=== PATIENT | female | born 1960 | race Caucasian/White ===

== ENCOUNTER 2021-03-23 11:58 | Inpatient (IN) | payer OTHER ==
[2021-03-23] MEDS ORDERED: SODIUM CHLORIDE 0.9% 500 ML INFUS.BAG IV ONE (12:45)
[2021-03-23 13:57] LABS: CHLORIDE 105 mmol/L (98-107); SODIUM 140 mmol/L (136-145)
[2021-03-23 13:59] LABS: BLOOD UREA NITROGEN 17.8 mg/dL (7-18)
[2021-03-23 14:00] LABS: ALBUMIN 3.4 g/dl (3.4-5.0); ANION GAP 9 MMOL/L (8-16); CO2 26 mmol/L (21-32); GLUCOSE,RANDOM 114 mg/dL (74-106); MAGNESIUM 2.4 mg/dL (1.8-2.4)
[2021-03-23 14:03] LABS: CREATININE 0.5 mg/dL (0.55-1.3); SGOT/AST 37 U/L (15-37); SGPT/ALT 34 U/L (13-61)
[2021-03-23 14:04] LABS: BILIRUBIN,TOTAL 0.4 mg/dL (0.2-1); TOT PROT 7.1 g/dl (6.4-8.2)
[2021-03-23 14:06] LABS: ALK PHOS 52 U/L (45-117)
[2021-03-23 14:19] LABS: BASO % 0.4 % (0-2.0); HEMATOCRIT 36.8 % (32.4-45.2); LYMPH % 10.1 % (8-40); MCH 31.2 pg (25.7-33.7); MCHC 35.2 g/dl (32.0-36.0); MEAN CELL VOLUME 88.6 fl (80-96); MEAN PLT VOLUME 8.5 fl (7.5-11.1); NEUT % 81.5 % (42.8-82.8); PLATELET COUNT 205 10^3/uL (134-434); RBC 4.15 M/mm3 (3.60-5.2); RDW 13.6 % (11.6-15.6); WHITE BLOOD COUNT 4.5 K/mm3 (4.0-10.0)
[2021-03-23 17:13] LABS: EPI CELLS 26 /uL (0-25.1); HYALINE CASTS 4 /uL (0-3.1); PH,URINE 5.5 (5.0-8.0); URINE APPEARANCE CLEAR; URINE BACTERIA 64 /uL (0-1359); URINE BILIRUBIN NEGATIVE (NEGATIVE); URINE COLOR YELLOW; URINE GLUCOSE (UA) NEGATIVE (NEGATIVE); URINE KETONE NEGATIVE (NEGATIVE); URINE LEUK ESTERASE NEGATIVE (NEGATIVE); URINE NITRITE NEGATIVE (NEGATIVE); URINE PROTEIN 2+ (NEGATIVE); URINE RBC 12 /uL (0-23.9); URINE UROBILINOGEN 0.2 mg/dL (0.2-1.0); URINE WBC 17 /uL (0-25.8)
[2021-03-24] MEDS: ACETAMINOPHEN 325 MG TABLET (FP) PO PRN (06:29)
[2021-03-24 07:41] LABS: BASO % 0.3 % (0-2.0); HEMOGLOBIN 13.3 GM/dL (10.7-15.3); LYMPH % 9.5 % (8-40); MCH 31.7 pg (25.7-33.7); MCHC 35.9 g/dl (32.0-36.0); MEAN CELL VOLUME 88.1 fl (80-96); MEAN PLT VOLUME 8.5 fl (7.5-11.1); MONO % 7.1 % (3.8-10.2); NEUT % 83.1 % (42.8-82.8); PLATELET COUNT 225 10^3/uL (134-434); RBC 4.19 M/mm3 (3.60-5.2); RDW 13.8 % (11.6-15.6); WHITE BLOOD COUNT 5.1 K/mm3 (4.0-10.0)
[2021-03-24 07:54] LABS: BLOOD UREA NITROGEN 15.5 mg/dL (7-18); CALCIUM 7.6 mg/dL (8.5-10.1); MAGNESIUM 2.2 mg/dL (1.8-2.4)
[2021-03-24 07:58] LABS: CREATININE 0.5 mg/dL (0.55-1.3); PHOSPHOROUS 3.1 mg/dL (2.5-4.9)
[2021-03-24 07:59] LABS: BILIRUBIN,TOTAL 0.5 mg/dL (0.2-1); TOT PROT 6.3 g/dl (6.4-8.2)
[2021-03-24] MEDS ORDERED: PT OWN MED DRAWER 7, Y5N ONE ×2 (09:07→17:49)
[2021-03-24] MEDS: ENOXAPARIN NA (PORCINE) 40 MG/0.4 ML DISP.SYRIN SQ SCH (09:41)
[2021-03-24] MEDS: FOLIC ACID 1 MG TABLET (FP) PO SCH (09:42)
[2021-03-24] MEDS: PANTOPRAZOLE 40 MG TABLET PO SCH (09:42)
[2021-03-24] MEDS ORDERED: METHOTREXATE 2.5 MG TABLET PO SCH (10:00)
[2021-03-24] MEDS ORDERED: DEXAMETHASONE 4 MG TABLET (FP) PO SCH (10:00)
[2021-03-24] MEDS ORDERED: REMDESIVIR 200 MG in SODIUM CHLORIDE 250 ML IVPB ONE (11:42)
[2021-03-24] MEDS: ASCORBIC ACID 500 MG TABLET (FP) PO SCH ×2 (13:03→20:59)
[2021-03-24] MEDS: CHOLECALCIFEROL (VIT D3) 1,000 UNIT (25 MCG) TABLET PO SCH (13:03)
[2021-03-24] MEDS: ZINC SULFATE 220 MG CAPSULE (FP) PO SCH (13:03)
[2021-03-24] MEDS: HYDROXYCHLOROQUINE SO4 200 MG TABLET (FP) PO SCH (13:04)
[2021-03-25 07:58] LABS: BASO % 0.2 % (0-2.0); HEMATOCRIT 37.4 % (32.4-45.2); HEMOGLOBIN 13.2 GM/dL (10.7-15.3); LYMPH % 7.9 % (8-40); MCH 31.5 pg (25.7-33.7); MCHC 35.3 g/dl (32.0-36.0); MEAN CELL VOLUME 89.3 fl (80-96); MEAN PLT VOLUME 8.8 fl (7.5-11.1); MONO % 7.1 % (3.8-10.2); NEUT % 84.8 % (42.8-82.8); PLATELET COUNT 280 10^3/uL (134-434); RBC 4.19 M/mm3 (3.60-5.2); RDW 13.4 % (11.6-15.6); WHITE BLOOD COUNT 7.2 K/mm3 (4.0-10.0)
[2021-03-25 08:00] LABS: BLOOD UREA NITROGEN 20.3 mg/dL (7-18); CALCIUM 7.9 mg/dL (8.5-10.1)
[2021-03-25 08:01] LABS: MAGNESIUM 2.2 mg/dL (1.8-2.4)
[2021-03-25 08:04] LABS: CREATININE 0.5 mg/dL (0.55-1.3); PHOSPHOROUS 2.9 mg/dL (2.5-4.9)
[2021-03-25 08:05] LABS: BILIRUBIN,TOTAL 0.4 mg/dL (0.2-1); TOT PROT 6.4 g/dl (6.4-8.2)
[2021-03-25] MEDS ORDERED: PT OWN MED DRAWER 7, Y5N ONE (09:56)
[2021-03-25] MEDS: CHOLECALCIFEROL (VIT D3) 1,000 UNIT (25 MCG) TABLET PO SCH (09:57)
[2021-03-25] MEDS: PANTOPRAZOLE 40 MG TABLET PO SCH (09:57)
[2021-03-25] MEDS: ASCORBIC ACID 500 MG TABLET (FP) PO SCH ×2 (09:57→22:22)
[2021-03-25] MEDS: DEXAMETHASONE SOD PHOSPHATE 4 MG/1 ML VIAL IVPUSH SCH (09:57)
[2021-03-25] MEDS: ZINC SULFATE 220 MG CAPSULE (FP) PO SCH (09:58)
[2021-03-25] MEDS: FOLIC ACID 1 MG TABLET (FP) PO SCH (09:58)
[2021-03-25] MEDS: HYDROXYCHLOROQUINE SO4 200 MG TABLET (FP) PO SCH (09:58)
[2021-03-25] MEDS: ENOXAPARIN NA (PORCINE) 40 MG/0.4 ML DISP.SYRIN SQ SCH (09:58)
[2021-03-25] MEDS ORDERED: TOCILIZUMAB IVPB ONE ×2 (12:14→12:45)
[2021-03-25] MEDS ORDERED: SODIUM CHLORIDE IVPB ONE ×2 (12:14→12:45)
[2021-03-25] MEDS: REMDESIVIR 100 MG in SODIUM CHLORIDE 250 ML IVPB SCH (12:51)
[2021-03-26 07:37] LABS: CALCIUM 7.9 mg/dL (8.5-10.1)
[2021-03-26 07:38] LABS: MAGNESIUM 2.3 mg/dL (1.8-2.4)
[2021-03-26 07:41] LABS: CREATININE 0.4 mg/dL (0.55-1.3); PHOSPHOROUS 3.2 mg/dL (2.5-4.9)
[2021-03-26 07:42] LABS: BILIRUBIN,TOTAL 0.4 mg/dL (0.2-1); TOT PROT 6.5 g/dl (6.4-8.2)
[2021-03-26 08:19] LABS: BASO % 1.8 % (0-2.0); HEMATOCRIT 40.1 % (32.4-45.2); LYMPH % 17.4 % (8-40); MCH 31.3 pg (25.7-33.7); MCHC 34.8 g/dl (32.0-36.0); MEAN CELL VOLUME 89.7 fl (80-96); MEAN PLT VOLUME 8.7 fl (7.5-11.1); MONO % 9.4 % (3.8-10.2); NEUT % 71.4 % (42.8-82.8); PLATELET COUNT 269 10^3/uL (134-434); RBC 4.47 M/mm3 (3.60-5.2); RDW 13.8 % (11.6-15.6); WHITE BLOOD COUNT 3.3 K/mm3 (4.0-10.0)
[2021-03-26] MEDS ORDERED: PT OWN MED DRAWER 7, Y5N ONE (09:17)
[2021-03-26] MEDS: CHOLECALCIFEROL (VIT D3) 1,000 UNIT (25 MCG) TABLET PO SCH (10:00)
[2021-03-26] MEDS: ZINC SULFATE 220 MG CAPSULE (FP) PO SCH (10:00)
[2021-03-26] MEDS: ASCORBIC ACID 500 MG TABLET (FP) PO SCH ×2 (10:00→23:03)
[2021-03-26] MEDS: ENOXAPARIN NA (PORCINE) 40 MG/0.4 ML DISP.SYRIN SQ SCH (10:00)
[2021-03-26] MEDS: FOLIC ACID 1 MG TABLET (FP) PO SCH (10:00)
[2021-03-26] MEDS: PANTOPRAZOLE 40 MG TABLET PO SCH (10:00)
[2021-03-26] MEDS: HYDROXYCHLOROQUINE SO4 200 MG TABLET (FP) PO SCH (10:01)
[2021-03-26] MEDS: DEXAMETHASONE SOD PHOSPHATE 4 MG/1 ML VIAL IVPUSH SCH (10:01)
[2021-03-26] MEDS: REMDESIVIR 100 MG in SODIUM CHLORIDE 250 ML IVPB SCH (12:18)
[2021-03-27 08:31] LABS: BASO % 0.3 % (0-2.0); EOS % 0.2 % (0-4.5); HEMATOCRIT 39.7 % (32.4-45.2); LYMPH % 17.3 % (8-40); MCH 31.5 pg (25.7-33.7); MCHC 35.2 g/dl (32.0-36.0); MEAN CELL VOLUME 89.4 fl (80-96); MEAN PLT VOLUME 8.4 fl (7.5-11.1); MONO % 7.9 % (3.8-10.2); NEUT % 74.3 % (42.8-82.8); PLATELET COUNT 361 10^3/uL (134-434); RBC 4.44 M/mm3 (3.60-5.2); RDW 13.8 % (11.6-15.6); WHITE BLOOD COUNT 4.2 K/mm3 (4.0-10.0)
[2021-03-27 08:50] LABS: ALBUMIN 3.1 g/dl (3.4-5.0); BLOOD UREA NITROGEN 27.5 mg/dL (7-18); CALCIUM 8.4 mg/dL (8.5-10.1)
[2021-03-27 08:52] LABS: MAGNESIUM 2.4 mg/dL (1.8-2.4)
[2021-03-27 08:53] LABS: CREATININE 0.5 mg/dL (0.55-1.3)
[2021-03-27 08:55] LABS: BILIRUBIN,TOTAL 0.5 mg/dL (0.2-1); TOT PROT 6.2 g/dl (6.4-8.2)
[2021-03-27 09:27] LABS: ERYTHROCYTE SEDIMENTATION RATE 34 mm/hr (0-30)
[2021-03-27] MEDS ORDERED: PT OWN MED DRAWER 7, Y5N ONE (10:17)
[2021-03-27] MEDS: ASCORBIC ACID 500 MG TABLET (FP) PO SCH ×2 (10:48→22:13)
[2021-03-27] MEDS: DEXAMETHASONE SOD PHOSPHATE 4 MG/1 ML VIAL IVPUSH SCH (10:48)
[2021-03-27] MEDS: CHOLECALCIFEROL (VIT D3) 1,000 UNIT (25 MCG) TABLET PO SCH (10:48)
[2021-03-27] MEDS: FOLIC ACID 1 MG TABLET (FP) PO SCH (10:48)
[2021-03-27] MEDS: ZINC SULFATE 220 MG CAPSULE (FP) PO SCH (10:48)
[2021-03-27] MEDS: ENOXAPARIN NA (PORCINE) 40 MG/0.4 ML DISP.SYRIN SQ SCH (10:48)
[2021-03-27] MEDS: PANTOPRAZOLE 40 MG TABLET PO SCH (10:48)
[2021-03-27] MEDS: HYDROXYCHLOROQUINE SO4 200 MG TABLET (FP) PO SCH (10:49)
[2021-03-27] MEDS: REMDESIVIR 100 MG in SODIUM CHLORIDE 250 ML IVPB SCH (13:52)
[2021-03-28 08:50] LABS: BASO % 0.4 % (0-2.0); HEMATOCRIT 38.1 % (32.4-45.2); HEMOGLOBIN 13.5 GM/dL (10.7-15.3); LYMPH % 14.9 % (8-40); MCH 31.4 pg (25.7-33.7); MCHC 35.3 g/dl (32.0-36.0); MEAN CELL VOLUME 88.9 fl (80-96); NEUT % 76.7 % (42.8-82.8); PLATELET COUNT 399 10^3/uL (134-434); RBC 4.29 M/mm3 (3.60-5.2); RDW 13.9 % (11.6-15.6); WHITE BLOOD COUNT 5.2 K/mm3 (4.0-10.0)
[2021-03-28 09:09] LABS: ALBUMIN 3.1 g/dl (3.4-5.0); BLOOD UREA NITROGEN 26.1 mg/dL (7-18); CALCIUM 8.3 mg/dL (8.5-10.1); MAGNESIUM 2.4 mg/dL (1.8-2.4)
[2021-03-28 09:12] LABS: CREATININE 0.5 mg/dL (0.55-1.3)
[2021-03-28 09:13] LABS: BILIRUBIN,TOTAL 0.8 mg/dL (0.2-1); PHOSPHOROUS 3.4 mg/dL (2.5-4.9); TOT PROT 6.1 g/dl (6.4-8.2)
[2021-03-28] MEDS ORDERED: PT OWN MED DRAWER 7, Y5N ONE (10:05)
[2021-03-28] MEDS: FOLIC ACID 1 MG TABLET (FP) PO SCH (10:08)
[2021-03-28] MEDS: CHOLECALCIFEROL (VIT D3) 1,000 UNIT (25 MCG) TABLET PO SCH (10:08)
[2021-03-28] MEDS: ZINC SULFATE 220 MG CAPSULE (FP) PO SCH (10:08)
[2021-03-28] MEDS: PANTOPRAZOLE 40 MG TABLET PO SCH (10:08)
[2021-03-28] MEDS: DEXAMETHASONE SOD PHOSPHATE 4 MG/1 ML VIAL IVPUSH SCH (10:08)
[2021-03-28] MEDS: ASCORBIC ACID 500 MG TABLET (FP) PO SCH ×2 (10:08→23:47)
[2021-03-28] MEDS: ENOXAPARIN NA (PORCINE) 40 MG/0.4 ML DISP.SYRIN SQ SCH (10:08)
[2021-03-28] MEDS: HYDROXYCHLOROQUINE SO4 200 MG TABLET (FP) PO SCH (10:09)
[2021-03-28] MEDS: REMDESIVIR 100 MG in SODIUM CHLORIDE 250 ML IVPB SCH (13:52)
[2021-03-28] MEDS: ACETAMINOPHEN 325 MG TABLET (FP) PO PRN (23:47)
[2021-03-29] MEDS: ASCORBIC ACID 500 MG TABLET (FP) PO SCH ×2 (10:16→21:10)
[2021-03-29] MEDS: DEXAMETHASONE SOD PHOSPHATE 4 MG/1 ML VIAL IVPUSH SCH (10:16)
[2021-03-29] MEDS: ENOXAPARIN NA (PORCINE) 40 MG/0.4 ML DISP.SYRIN SQ SCH (10:16)
[2021-03-29] MEDS: FOLIC ACID 1 MG TABLET (FP) PO SCH (10:16)
[2021-03-29] MEDS: CHOLECALCIFEROL (VIT D3) 1,000 UNIT (25 MCG) TABLET PO SCH (10:16)
[2021-03-29] MEDS: PANTOPRAZOLE 40 MG TABLET PO SCH (10:16)
[2021-03-29] MEDS: ZINC SULFATE 220 MG CAPSULE (FP) PO SCH (10:16)
[2021-03-29] MEDS: HYDROXYCHLOROQUINE SO4 200 MG TABLET (FP) PO SCH (10:20)
[2021-03-29] MEDS: LYTES/YERBA SANTA 60 ML SPRAY MM SCH ×2 (13:31→22:00)
[2021-03-30 07:03] LABS: BASO % 0.2 % (0-2.0); HEMATOCRIT 41.1 % (32.4-45.2); HEMOGLOBIN 14.3 GM/dL (10.7-15.3); LYMPH % 6.3 % (8-40); MCH 31.1 pg (25.7-33.7); MCHC 34.9 g/dl (32.0-36.0); MEAN PLT VOLUME 7.8 fl (7.5-11.1); MONO % 2.8 % (3.8-10.2); NEUT % 89.7 % (42.8-82.8); PLATELET COUNT 405 10^3/uL (134-434); RBC 4.61 M/mm3 (3.60-5.2); WHITE BLOOD COUNT 12.9 K/mm3 (4.0-10.0)
[2021-03-30 07:20] LABS: ALBUMIN 3.2 g/dl (3.4-5.0); BLOOD UREA NITROGEN 25.7 mg/dL (7-18); CALCIUM 8.9 mg/dL (8.5-10.1)
[2021-03-30 07:21] LABS: MAGNESIUM 2.4 mg/dL (1.8-2.4)
[2021-03-30 07:23] LABS: CREATININE 0.5 mg/dL (0.55-1.3); PHOSPHOROUS 3.8 mg/dL (2.5-4.9)
[2021-03-30 07:24] LABS: BILIRUBIN,TOTAL 0.4 mg/dL (0.2-1); TOT PROT 6.2 g/dl (6.4-8.2)
[2021-03-30] MEDS: ZINC SULFATE 220 MG CAPSULE (FP) PO SCH (10:21)
[2021-03-30] MEDS: FOLIC ACID 1 MG TABLET (FP) PO SCH (10:21)
[2021-03-30] MEDS: CHOLECALCIFEROL (VIT D3) 1,000 UNIT (25 MCG) TABLET PO SCH (10:21)
[2021-03-30] MEDS: ASCORBIC ACID 500 MG TABLET (FP) PO SCH ×2 (10:21→22:26)
[2021-03-30] MEDS: DEXAMETHASONE SOD PHOSPHATE 4 MG/1 ML VIAL IVPUSH SCH (10:21)
[2021-03-30] MEDS: PANTOPRAZOLE 40 MG TABLET PO SCH (10:21)
[2021-03-30] MEDS: ENOXAPARIN NA (PORCINE) 40 MG/0.4 ML DISP.SYRIN SQ SCH (10:22)
[2021-03-30] MEDS: HYDROXYCHLOROQUINE SO4 200 MG TABLET (FP) PO SCH (10:23)
[2021-03-30] MEDS: LYTES/YERBA SANTA 60 ML SPRAY MM SCH ×2 (10:30→22:26)
[2021-03-31 08:55] LABS: BASO % 0.3 % (0-2.0); EOS % 0.7 % (0-4.5); HEMATOCRIT 42.7 % (32.4-45.2); HEMOGLOBIN 14.8 GM/dL (10.7-15.3); LYMPH % 4.3 % (8-40); MCH 31.2 pg (25.7-33.7); MCHC 34.7 g/dl (32.0-36.0); MEAN CELL VOLUME 89.8 fl (80-96); MEAN PLT VOLUME 8.2 fl (7.5-11.1); MONO % 2.6 % (3.8-10.2); NEUT % 92.1 % (42.8-82.8); PLATELET COUNT 391 10^3/uL (134-434); RBC 4.76 M/mm3 (3.60-5.2); RDW 13.6 % (11.6-15.6); WHITE BLOOD COUNT 17.3 K/mm3 (4.0-10.0)
[2021-03-31 09:30] LABS: ALBUMIN 3.3 g/dl (3.4-5.0); CALCIUM 8.4 mg/dL (8.5-10.1)
[2021-03-31] MEDS ORDERED: PT OWN MED DRAWER 7, Y5N ONE (09:31)
[2021-03-31 09:32] LABS: BLOOD UREA NITROGEN 26.1 mg/dL (7-18)
[2021-03-31 09:33] LABS: CREATININE 0.5 mg/dL (0.55-1.3)
[2021-03-31 09:34] LABS: BILIRUBIN,TOTAL 0.6 mg/dL (0.2-1); TOT PROT 6.2 g/dl (6.4-8.2)
[2021-03-31] MEDS: PANTOPRAZOLE 40 MG TABLET PO SCH (09:47)
[2021-03-31] MEDS: DEXAMETHASONE SOD PHOSPHATE 4 MG/1 ML VIAL IVPUSH SCH (09:47)
[2021-03-31] MEDS: ENOXAPARIN NA (PORCINE) 40 MG/0.4 ML DISP.SYRIN SQ SCH (09:47)
[2021-03-31] MEDS: CHOLECALCIFEROL (VIT D3) 1,000 UNIT (25 MCG) TABLET PO SCH (09:47)
[2021-03-31] MEDS: HYDROXYCHLOROQUINE SO4 200 MG TABLET (FP) PO SCH (09:48)
[2021-03-31] MEDS: ASCORBIC ACID 500 MG TABLET (FP) PO SCH ×2 (09:48→21:26)
[2021-03-31] MEDS: LYTES/YERBA SANTA 60 ML SPRAY MM SCH ×2 (09:48→21:26)
[2021-03-31] MEDS: ZINC SULFATE 220 MG CAPSULE (FP) PO SCH (09:48)
[2021-03-31] MEDS: FOLIC ACID 1 MG TABLET (FP) PO SCH (09:48)
[2021-03-31 10:43] LABS: ANISOCYTOSIS 0; MACROCYTOSIS 0; PLATELET ESTIMATE NORMAL
[2021-04-01] MEDS: LACTATED RINGERS SOLUTION 1,000 ML/1,000 ML INFUS.BAG IV SCH ×2 (04:32→21:10)
[2021-04-01 07:16] LABS: BASO % 0.2 % (0-2.0); HEMATOCRIT 39.2 % (32.4-45.2); HEMOGLOBIN 13.7 GM/dL (10.7-15.3); LYMPH % 8.1 % (8-40); MCH 31.1 pg (25.7-33.7); MCHC 34.9 g/dl (32.0-36.0); MONO % 2.8 % (3.8-10.2); NEUT % 87.9 % (42.8-82.8); PLATELET COUNT 320 10^3/uL (134-434); WHITE BLOOD COUNT 12.4 K/mm3 (4.0-10.0)
[2021-04-01] MEDS ORDERED: DOCUSATE SODIUM 100 MG CAPSULE (FP) PO PRN (07:19)
[2021-04-01] MEDS ORDERED: SENNOSIDES 8.6MG TABLET (FP) PO PRN (07:19)
[2021-04-01 07:20] LABS: CHLORIDE 108 mmol/L (98-107); SODIUM 142 mmol/L (136-145)
[2021-04-01 07:27] LABS: ALBUMIN 3.1 g/dl (3.4-5.0); ANION GAP 8 MMOL/L (8-16); BLOOD UREA NITROGEN 23.9 mg/dL (7-18); CO2 27 mmol/L (21-32)
[2021-04-01 07:28] LABS: GLUCOSE,RANDOM 80 mg/dL (74-106); MAGNESIUM 2.2 mg/dL (1.8-2.4)
[2021-04-01 07:31] LABS: CREATININE 0.5 mg/dL (0.55-1.3); LDH 598 U/L (84-246); PHOSPHOROUS 3.2 mg/dL (2.5-4.9); SGOT/AST 29 U/L (15-37); SGPT/ALT 28 U/L (13-61)
[2021-04-01 07:32] LABS: BILIRUBIN,TOTAL 0.5 mg/dL (0.2-1); TOT PROT 5.7 g/dl (6.4-8.2)
[2021-04-01 07:33] LABS: ALK PHOS 58 U/L (45-117)
[2021-04-01 08:31] LABS: ERYTHROCYTE SEDIMENTATION RATE 4 mm/hr (0-30)
[2021-04-01] MEDS ORDERED: PT OWN MED DRAWER 7, Y5N ONE (10:44)
[2021-04-01] MEDS: DEXAMETHASONE SOD PHOSPHATE 4 MG/1 ML VIAL IVPUSH SCH (10:45)
[2021-04-01] MEDS: CHOLECALCIFEROL (VIT D3) 1,000 UNIT (25 MCG) TABLET PO SCH (10:45)
[2021-04-01] MEDS: FOLIC ACID 1 MG TABLET (FP) PO SCH (10:45)
[2021-04-01] MEDS: PANTOPRAZOLE 40 MG TABLET PO SCH (10:45)
[2021-04-01] MEDS: ASCORBIC ACID 500 MG TABLET (FP) PO SCH ×2 (10:45→21:08)
[2021-04-01] MEDS: HYDROXYCHLOROQUINE SO4 200 MG TABLET (FP) PO SCH (10:46)
[2021-04-01] MEDS: ENOXAPARIN NA (PORCINE) 40 MG/0.4 ML DISP.SYRIN SQ SCH ×2 (10:46→21:08)
[2021-04-01] MEDS: ZINC SULFATE 220 MG CAPSULE (FP) PO SCH (10:46)
[2021-04-01] MEDS: LYTES/YERBA SANTA 60 ML SPRAY MM SCH ×2 (11:08→21:10)
[2021-04-02 07:34] LABS: BASO % 0.5 % (0-2.0); EOS % 1.3 % (0-4.5); HEMATOCRIT 38.4 % (32.4-45.2); HEMOGLOBIN 13.4 GM/dL (10.7-15.3); LYMPH % 13.5 % (8-40); MCH 31.2 pg (25.7-33.7); MCHC 34.8 g/dl (32.0-36.0); MEAN CELL VOLUME 89.5 fl (80-96); MEAN PLT VOLUME 8.1 fl (7.5-11.1); MONO % 4.5 % (3.8-10.2); NEUT % 80.2 % (42.8-82.8); PLATELET COUNT 273 10^3/uL (134-434); RBC 4.29 M/mm3 (3.60-5.2); RDW 13.8 % (11.6-15.6); WHITE BLOOD COUNT 8.4 K/mm3 (4.0-10.0)
[2021-04-02 08:00] LABS: CALCIUM 8.3 mg/dL (8.5-10.1)
[2021-04-02 08:01] LABS: BILIRUBIN,TOTAL 0.5 mg/dL (0.2-1); BLOOD UREA NITROGEN 18.5 mg/dL (7-18); TOT PROT 5.5 g/dl (6.4-8.2)
[2021-04-02 08:04] LABS: CREATININE 0.4 mg/dL (0.55-1.3); PHOSPHOROUS 3.2 mg/dL (2.5-4.9)
[2021-04-02 08:05] LABS: MAGNESIUM 2.1 mg/dL (1.8-2.4)
[2021-04-02] MEDS ORDERED: PT OWN MED DRAWER 7, Y5N ONE ×2 (10:00→21:51)
[2021-04-02] MEDS: ENOXAPARIN NA (PORCINE) 40 MG/0.4 ML DISP.SYRIN SQ SCH ×2 (10:05→21:52)
[2021-04-02] MEDS: HYDROXYCHLOROQUINE SO4 200 MG TABLET (FP) PO SCH (10:06)
[2021-04-02] MEDS: DEXAMETHASONE SOD PHOSPHATE 4 MG/1 ML VIAL IVPUSH SCH (10:06)
[2021-04-02] MEDS: ZINC SULFATE 220 MG CAPSULE (FP) PO SCH (10:06)
[2021-04-02] MEDS: FOLIC ACID 1 MG TABLET (FP) PO SCH (10:06)
[2021-04-02] MEDS: CHOLECALCIFEROL (VIT D3) 1,000 UNIT (25 MCG) TABLET PO SCH (10:06)
[2021-04-02] MEDS: LYTES/YERBA SANTA 60 ML SPRAY MM SCH ×2 (10:06→21:52)
[2021-04-02] MEDS: PANTOPRAZOLE 40 MG TABLET PO SCH (10:06)
[2021-04-02] MEDS: ASCORBIC ACID 500 MG TABLET (FP) PO SCH ×2 (10:06→21:53)
[2021-04-03 08:01] LABS: BASO % 1.3 % (0-2.0); HEMATOCRIT 39.1 % (32.4-45.2); HEMOGLOBIN 13.6 GM/dL (10.7-15.3); LYMPH % 21.9 % (8-40); MCH 31.4 pg (25.7-33.7); MCHC 34.9 g/dl (32.0-36.0); MEAN CELL VOLUME 90.1 fl (80-96); MEAN PLT VOLUME 8.7 fl (7.5-11.1); MONO % 6.8 % (3.8-10.2); PLATELET COUNT 266 10^3/uL (134-434); RBC 4.35 M/mm3 (3.60-5.2); RDW 13.7 % (11.6-15.6); WHITE BLOOD COUNT 7.7 K/mm3 (4.0-10.0)
[2021-04-03 08:19] LABS: ALBUMIN 3.2 g/dl (3.4-5.0); CALCIUM 8.2 mg/dL (8.5-10.1)
[2021-04-03 08:20] LABS: BLOOD UREA NITROGEN 16.3 mg/dL (7-18); MAGNESIUM 2.2 mg/dL (1.8-2.4)
[2021-04-03 08:23] LABS: CREATININE 0.4 mg/dL (0.55-1.3)
[2021-04-03 08:24] LABS: BILIRUBIN,TOTAL 0.6 mg/dL (0.2-1); TOT PROT 5.8 g/dl (6.4-8.2)
[2021-04-03] MEDS ORDERED: PT OWN MED DRAWER 7, Y5N ONE (09:05)
[2021-04-03 09:28] LABS: PLATELET ESTIMATE ADEQUATE
[2021-04-03] MEDS: CHOLECALCIFEROL (VIT D3) 1,000 UNIT (25 MCG) TABLET PO SCH (09:42)
[2021-04-03] MEDS: ENOXAPARIN NA (PORCINE) 40 MG/0.4 ML DISP.SYRIN SQ SCH ×2 (09:42→22:52)
[2021-04-03] MEDS: ZINC SULFATE 220 MG CAPSULE (FP) PO SCH (09:42)
[2021-04-03] MEDS: PANTOPRAZOLE 40 MG TABLET PO SCH (09:42)
[2021-04-03] MEDS: FOLIC ACID 1 MG TABLET (FP) PO SCH (09:42)
[2021-04-03] MEDS: LYTES/YERBA SANTA 60 ML SPRAY MM SCH ×2 (09:42→22:53)
[2021-04-03] MEDS: DEXAMETHASONE SOD PHOSPHATE 4 MG/1 ML VIAL IVPUSH SCH (09:42)
[2021-04-03] MEDS: ASCORBIC ACID 500 MG TABLET (FP) PO SCH ×2 (09:42→22:53)
[2021-04-03] MEDS: HYDROXYCHLOROQUINE SO4 200 MG TABLET (FP) PO SCH (09:44)
[2021-04-04 08:03] LABS: BASO % 0.9 % (0-2.0); EOS % 1.1 % (0-4.5); HEMATOCRIT 37.6 % (32.4-45.2); HEMOGLOBIN 13.2 GM/dL (10.7-15.3); LYMPH % 24.7 % (8-40); MCH 31.3 pg (25.7-33.7); MEAN CELL VOLUME 89.5 fl (80-96); MEAN PLT VOLUME 8.6 fl (7.5-11.1); MONO % 8.4 % (3.8-10.2); NEUT % 64.9 % (42.8-82.8); PLATELET COUNT 230 10^3/uL (134-434); RDW 14.2 % (11.6-15.6); WHITE BLOOD COUNT 7.5 K/mm3 (4.0-10.0)
[2021-04-04 08:18] LABS: BLOOD UREA NITROGEN 19.4 mg/dL (7-18); CALCIUM 8.1 mg/dL (8.5-10.1); MAGNESIUM 2.2 mg/dL (1.8-2.4)
[2021-04-04 08:21] LABS: CREATININE 0.5 mg/dL (0.55-1.3); PHOSPHOROUS 3.1 mg/dL (2.5-4.9)
[2021-04-04] MEDS: DEXAMETHASONE SOD PHOSPHATE 4 MG/1 ML VIAL IVPUSH SCH (10:12)
[2021-04-04] MEDS: ASCORBIC ACID 500 MG TABLET (FP) PO SCH ×2 (10:13→21:26)
[2021-04-04] MEDS: ZINC SULFATE 220 MG CAPSULE (FP) PO SCH (10:13)
[2021-04-04] MEDS: PANTOPRAZOLE 40 MG TABLET PO SCH (10:13)
[2021-04-04] MEDS: FOLIC ACID 1 MG TABLET (FP) PO SCH (10:13)
[2021-04-04] MEDS: CHOLECALCIFEROL (VIT D3) 1,000 UNIT (25 MCG) TABLET PO SCH (10:13)
[2021-04-04] MEDS: ENOXAPARIN NA (PORCINE) 40 MG/0.4 ML DISP.SYRIN SQ SCH ×2 (10:13→21:26)
[2021-04-04] MEDS: LYTES/YERBA SANTA 60 ML SPRAY MM SCH ×2 (10:15→21:26)
[2021-04-04] MEDS ORDERED: PT OWN MED DRAWER 7, Y5N ONE ×2 (10:23→11:19)
[2021-04-04] MEDS: HYDROXYCHLOROQUINE SO4 200 MG TABLET (FP) PO SCH (11:20)
[2021-04-04 11:50] LABS: ANISOCYTOSIS 1+; MACROCYTOSIS 0; OVALOCYTE 1+; PLATELET ESTIMATE NORMAL; TEAR DROP CELLS 1+
[2021-04-04] MEDS ORDERED: SODIUM CHLORIDE 500 ML IV STA (12:03)
[2021-04-05 08:27] LABS: HEMATOCRIT 37.6 % (32.4-45.2); MCH 31.3 pg (25.7-33.7); MCHC 34.6 g/dl (32.0-36.0); MEAN CELL VOLUME 90.4 fl (80-96); MEAN PLT VOLUME 9.1 fl (7.5-11.1); PLATELET COUNT 208 10^3/uL (134-434); RBC 4.16 M/mm3 (3.60-5.2); RDW 14.3 % (11.6-15.6); WHITE BLOOD COUNT 7.6 K/mm3 (4.0-10.0)
[2021-04-05 08:49] LABS: MAGNESIUM 2.1 mg/dL (1.8-2.4)
[2021-04-05 08:50] LABS: BLOOD UREA NITROGEN 17.4 mg/dL (7-18)
[2021-04-05 08:52] LABS: CREATININE 0.4 mg/dL (0.55-1.3)
[2021-04-05 08:53] LABS: PHOSPHOROUS 3.2 mg/dL (2.5-4.9)
[2021-04-05] MEDS ORDERED: PT OWN MED DRAWER 7, Y5N ONE (09:46)
[2021-04-05] MEDS: CHOLECALCIFEROL (VIT D3) 1,000 UNIT (25 MCG) TABLET PO SCH (09:55)
[2021-04-05] MEDS: ZINC SULFATE 220 MG CAPSULE (FP) PO SCH (09:55)
[2021-04-05] MEDS: FOLIC ACID 1 MG TABLET (FP) PO SCH (09:55)
[2021-04-05] MEDS: DEXAMETHASONE SOD PHOSPHATE 4 MG/1 ML VIAL IVPUSH SCH (09:55)
[2021-04-05] MEDS: ASCORBIC ACID 500 MG TABLET (FP) PO SCH ×2 (09:55→21:25)
[2021-04-05] MEDS: PANTOPRAZOLE 40 MG TABLET PO SCH (09:55)
[2021-04-05] MEDS: ENOXAPARIN NA (PORCINE) 40 MG/0.4 ML DISP.SYRIN SQ SCH ×2 (09:56→21:25)
[2021-04-05] MEDS: HYDROXYCHLOROQUINE SO4 200 MG TABLET (FP) PO SCH (09:56)
[2021-04-05] MEDS: LYTES/YERBA SANTA 60 ML SPRAY MM SCH ×2 (09:56→21:27)
[2021-04-06 08:45] LABS: HEMATOCRIT 37.3 % (32.4-45.2); HEMOGLOBIN 13.1 GM/dL (10.7-15.3); MCH 31.7 pg (25.7-33.7); MCHC 35.2 g/dl (32.0-36.0); MEAN CELL VOLUME 90.1 fl (80-96); MEAN PLT VOLUME 9.5 fl (7.5-11.1); PLATELET COUNT 188 10^3/uL (134-434); RBC 4.14 M/mm3 (3.60-5.2); RDW 14.4 % (11.6-15.6)
[2021-04-06 09:08] LABS: BLOOD UREA NITROGEN 18.4 mg/dL (7-18)
[2021-04-06 09:09] LABS: CALCIUM 7.9 mg/dL (8.5-10.1)
[2021-04-06 09:11] LABS: CREATININE 0.5 mg/dL (0.55-1.3); PHOSPHOROUS 2.9 mg/dL (2.5-4.9)
[2021-04-06] MEDS ORDERED: PT OWN MED DRAWER 7, Y5N ONE ×2 (09:40→12:25)
[2021-04-06] MEDS: LYTES/YERBA SANTA 60 ML SPRAY MM SCH ×2 (09:48→21:08)
[2021-04-06] MEDS: ASCORBIC ACID 500 MG TABLET (FP) PO SCH ×2 (09:48→21:08)
[2021-04-06] MEDS: FOLIC ACID 1 MG TABLET (FP) PO SCH (09:48)
[2021-04-06] MEDS: ZINC SULFATE 220 MG CAPSULE (FP) PO SCH (09:48)
[2021-04-06] MEDS: PANTOPRAZOLE 40 MG TABLET PO SCH (09:48)
[2021-04-06] MEDS: ENOXAPARIN NA (PORCINE) 40 MG/0.4 ML DISP.SYRIN SQ SCH ×2 (09:48→21:08)
[2021-04-06] MEDS: CHOLECALCIFEROL (VIT D3) 1,000 UNIT (25 MCG) TABLET PO SCH (09:48)
[2021-04-06] MEDS: HYDROXYCHLOROQUINE SO4 200 MG TABLET (FP) PO SCH (09:49)
[2021-04-06] MEDS ORDERED: DEXAMETHASONE SOD PHOSPHATE 4 MG/1 ML VIAL IVPUSH SCH (13:30)
[2021-04-07 08:00] LABS: HEMATOCRIT 37.9 % (32.4-45.2); HEMOGLOBIN 13.3 GM/dL (10.7-15.3); MCH 31.8 pg (25.7-33.7); MEAN CELL VOLUME 90.9 fl (80-96); MEAN PLT VOLUME 9.4 fl (7.5-11.1); PLATELET COUNT 178 10^3/uL (134-434); RBC 4.17 M/mm3 (3.60-5.2); RDW 14.5 % (11.6-15.6); WHITE BLOOD COUNT 8.5 K/mm3 (4.0-10.0)
[2021-04-07 08:52] LABS: CALCIUM 8.4 mg/dL (8.5-10.1)
[2021-04-07 08:53] LABS: BLOOD UREA NITROGEN 15.9 mg/dL (7-18); MAGNESIUM 2.2 mg/dL (1.8-2.4)
[2021-04-07 08:56] LABS: CREATININE 0.4 mg/dL (0.55-1.3); PHOSPHOROUS 3.2 mg/dL (2.5-4.9)
[2021-04-07] MEDS ORDERED: PT OWN MED DRAWER 7, Y5N ONE (09:28)
[2021-04-07] MEDS: ENOXAPARIN NA (PORCINE) 40 MG/0.4 ML DISP.SYRIN SQ SCH ×2 (10:05→21:18)
[2021-04-07] MEDS: CHOLECALCIFEROL (VIT D3) 1,000 UNIT (25 MCG) TABLET PO SCH (10:05)
[2021-04-07] MEDS: PANTOPRAZOLE 40 MG TABLET PO SCH (10:05)
[2021-04-07] MEDS: DEXAMETHASONE SOD PHOSPHATE 10 MG/1 ML VIAL IVPUSH SCH (10:05)
[2021-04-07] MEDS: ASCORBIC ACID 500 MG TABLET (FP) PO SCH ×2 (10:05→21:19)
[2021-04-07] MEDS: LYTES/YERBA SANTA 60 ML SPRAY MM SCH ×2 (10:05→21:24)
[2021-04-07] MEDS: ZINC SULFATE 220 MG CAPSULE (FP) PO SCH (10:05)
[2021-04-07] MEDS: FOLIC ACID 1 MG TABLET (FP) PO SCH (10:05)
[2021-04-07] MEDS: HYDROXYCHLOROQUINE SO4 200 MG TABLET (FP) PO SCH (10:05)
[2021-04-08] MEDS ORDERED: PT OWN MED DRAWER 7, Y5N ONE (09:19)
[2021-04-08] MEDS: DEXAMETHASONE SOD PHOSPHATE 10 MG/1 ML VIAL IVPUSH SCH (09:48)
[2021-04-08] MEDS: CHOLECALCIFEROL (VIT D3) 1,000 UNIT (25 MCG) TABLET PO SCH (09:48)
[2021-04-08] MEDS: ASCORBIC ACID 500 MG TABLET (FP) PO SCH ×2 (09:48→21:25)
[2021-04-08] MEDS: FOLIC ACID 1 MG TABLET (FP) PO SCH (09:48)
[2021-04-08] MEDS: ZINC SULFATE 220 MG CAPSULE (FP) PO SCH (09:48)
[2021-04-08] MEDS: PANTOPRAZOLE 40 MG TABLET PO SCH (09:48)
[2021-04-08] MEDS: ENOXAPARIN NA (PORCINE) 40 MG/0.4 ML DISP.SYRIN SQ SCH ×2 (09:48→21:25)
[2021-04-08] MEDS: LYTES/YERBA SANTA 60 ML SPRAY MM SCH ×2 (09:49→21:25)
[2021-04-08] MEDS: HYDROXYCHLOROQUINE SO4 200 MG TABLET (FP) PO SCH (09:50)
[2021-04-09] MEDS: CHOLECALCIFEROL (VIT D3) 1,000 UNIT (25 MCG) TABLET PO SCH (09:46)
[2021-04-09] MEDS: FOLIC ACID 1 MG TABLET (FP) PO SCH (09:46)
[2021-04-09] MEDS: PANTOPRAZOLE 40 MG TABLET PO SCH (09:46)
[2021-04-09] MEDS: ENOXAPARIN NA (PORCINE) 40 MG/0.4 ML DISP.SYRIN SQ SCH ×2 (09:46→21:17)
[2021-04-09] MEDS: DEXAMETHASONE SOD PHOSPHATE 10 MG/1 ML VIAL IVPUSH SCH (09:46)
[2021-04-09] MEDS: ZINC SULFATE 220 MG CAPSULE (FP) PO SCH (09:46)
[2021-04-09] MEDS: ASCORBIC ACID 500 MG TABLET (FP) PO SCH ×2 (09:46→21:17)
[2021-04-09] MEDS: LYTES/YERBA SANTA 60 ML SPRAY MM SCH ×2 (09:47→21:18)
[2021-04-09] MEDS: HYDROXYCHLOROQUINE SO4 200 MG TABLET (FP) PO SCH (09:47)
[2021-04-10] MEDS ORDERED: PT OWN MED DRAWER 7, Y5N ONE (09:11)
[2021-04-10] MEDS: ENOXAPARIN NA (PORCINE) 40 MG/0.4 ML DISP.SYRIN SQ SCH (09:15)
[2021-04-10] MEDS: CHOLECALCIFEROL (VIT D3) 1,000 UNIT (25 MCG) TABLET PO SCH (09:15)
[2021-04-10] MEDS: PANTOPRAZOLE 40 MG TABLET PO SCH (09:15)
[2021-04-10] MEDS: ASCORBIC ACID 500 MG TABLET (FP) PO SCH (09:15)
[2021-04-10] MEDS: FOLIC ACID 1 MG TABLET (FP) PO SCH (09:16)
[2021-04-10] MEDS: ZINC SULFATE 220 MG CAPSULE (FP) PO SCH (09:17)
[2021-04-10] MEDS: LYTES/YERBA SANTA 60 ML SPRAY MM SCH (09:17)
[2021-04-10] MEDS: HYDROXYCHLOROQUINE SO4 200 MG TABLET (FP) PO SCH (09:18)
[2021-04-10 09:37] VITALS: BP 105/55; PULSE 82; TEMP 98
[2021-04-10] MEDS ORDERED: DEXAMETHASONE SOD PHOSPHATE 4 MG/1 ML VIAL IVPUSH SCH (10:00)
== END 2021-04-10 18:45 | disposition home or self-care (01) | DRG 177 ==
LOC: JER 11:58 → JERBED 17:16 → J4S 03-24 00:13
PROVIDERS: ADMIT Internal Medicine; ATTEND Internal Medicine
PROC: XW033E5 Introduction of Remdesivir Anti-infective into Peripheral Vein, Percutaneous Approach, New Technology Group 5 (ICD-10-PCS; principal; 2021-03-23)
DX: U07.1 COVID-19 (principal); J12.82 Pneumonia due to coronavirus disease 2019; J96.01 Acute respiratory failure with hypoxia; M32.9 Systemic lupus erythematosus, unspecified; K59.00 Constipation, unspecified; E66.9 Obesity, unspecified; Z68.30 Body mass index [BMI] 30.0-30.9, adult
CPT/HCPCS: 36415; 71045-TC-FY; 80048; 80053; 81003; 82550; 82728; 83615; 83735; 84100; 84443; 84484; 85025; 85027; 85379; 85651; 86140; 86480; 93005; 93010; 94761; 97116-GP; 97161-GP; 99285-25; C9399; C9803; J1100; J3262; U0003; U0005